=== PATIENT | male | born 1990 | race Two or more races ===

== ENCOUNTER 2021-12-25 16:35 | Emergency (ER) | payer SELFPAY ==
[~2021-12-25] VITALS: Ht 167.6 cm; Wt 56.7 kg
[2021-12-25 18:47] VITALS: BP 142/77
[2021-12-25] MEDS ORDERED: AMOX-277 PO (19:14)
== END 2021-12-25 19:22 | disposition home or self-care (01) ==
LOC: ER 16:35
DX: K08.89 Other specified disorders of teeth and supporting structures (principal); F17.210 Nicotine dependence, cigarettes, uncomplicated